=== PATIENT | female | born 1980 | race Caucasian/White ===

== ENCOUNTER 2021-09-15 02:38 | Emergency (ER) | payer BC ==
[2021-09-15 02:46] VITALS: BP 144/96; PULSE 52; TEMP 98; BMI 23.2
[2021-09-15] MEDS ORDERED: AMOX TR/POT CLAV 875MG/125MG TABLETS (FP) PO ONE (02:53)
[2021-09-15] MEDS ORDERED: AMOX TR/POT CLAV 875MG/125MG TABLETS (FP) ONE (03:27)
== END 2021-09-15 03:34 | disposition home or self-care (01) ==
LOC: FER 02:38
DX: L03.032 Cellulitis of left toe (principal)
CPT/HCPCS: 99283-25